=== PATIENT | female | born 1985 | race Caucasian/White ===

== ENCOUNTER 2016-05-21 12:31 | Emergency (ER) | payer BC, MEDICAID ==
[~2016-05-21] VITALS: Ht 160 cm; Wt 68.5 kg
[~2016-05-21 12:31] MED LIST: ACET1TAB40 PO; ACYC800T57 PO; CEPH-443 PO; DICL50TA11 PO; DOCO2CRE3 TP; FAMO40TA38 PO; HYDR-3498 PO; NAPR-260 PO; PNV1TABL43 PO; PREN1COM10 PO
[2016-05-21 13:15] VITALS: Ht 160 cm; Wt 68.5 kg
[2016-05-21] MEDS ORDERED: ONDANSETRON 4 MG INJ IV STA (15:05)
[2016-05-21] MEDS ORDERED: KETOROLAC 15 MG INJ IV STA (15:05)
[2016-05-21] MEDS ORDERED: SOD CHLORIDE 0.9% 1,000 ML IV STA (15:05)
[2016-05-21] MEDS ORDERED: morphine 4 MG/ML VIAL IV STA (15:05)
[2016-05-21 15:38] LABS: BASOPHIL # 0.1 10^3/ul (0.0-0.1); CONDITION 1; EOSINOPHILS # 0.1 10^3/ul (0.0-0.5); HEMATOCRIT 41.2 % (37.0-47.0); LYMPHOCYTES # 1.1 10^3/ul (0.8-2.9); LYMPHOCYTES % 21.5 % (15.0-51.0); MEAN CORPUSCULAR HEMOGLOBIN 30.8 pg (29.0-33.0); MEAN CORPUSCULAR VOLUME 90.4 fl (82.0-101.0); MEAN PLATELET VOLUME 8.1 fl (7.4-10.4); MONOCYTE # 0.4 10^3/ul (0.3-0.9); MONOCYTES % 8.1 % (0.0-11.0); NEUTROPHIL # 3.6 10^3/ul (1.6-7.5); NEUTROPHILS % 68.4 % (39.0-77.0); PLATELET COUNT 278 10^3/UL (140-440); RED BLOOD COUNT 4.56 10^6/ul (4.20-5.40); UNCORRECTED WBC 5.3 10^3/ul (4.8-10.8); WHITE BLOOD COUNT 5.3 10^3/ul (4.8-10.8)
--- NOTE | 2016-05-21 15:58 | RADRPT ---
PROCEDURE: US Abdomen (right lower quadrant). CLINICAL INDICATION: Right lower quadrant abdominal pain TECHNIQUE: Multiple real-time longitudinal and transverse images of the right lower quadrant of th e abdomen were acquired utilizing a curved array transducer. Images were reviewed on a high-resoluti on PACS workstation. COMPARISON: Previous CT done 07/28/2011 A normal vermiform appendix was demonstrated on the previous CT. FINDINGS: The appendix is not visualized. No free fluid or fluid collection is seen. Segments of peristaltic bowel are identified. IMPRESSION: 1. The appendix is not visualized and therefore, acute appendicitis cannot be excluded sonographica lly requiring clinical correlation. 2. No free fluid is seen in the right lower quadrant. Physician Jax Date Time Electronically viewed and signed by Physician Jax on 05/21/2016 15:57 RH/
[2016-05-21 16:02] LABS: ALBUMIN 5.1 g/dl (3.3-4.9)
[2016-05-21 16:03] LABS: POTASSIUM 3.6 mmol/L (3.5-5.1)
[2016-05-21 16:05] LABS: ALBUMIN/GLOBULIN RATIO 1.34; BILIRUBIN,INDIRECT 0.4 mg/dl (0-1.1); BILIRUBIN,TOTAL 0.4 mg/dl (0.2-1.3); CREATININE 0.52 mg/dl (0.44-1.00); TOTAL PROTEIN 8.9 g/dl (6.1-8.1)
[2016-05-21 16:06] LABS: CALCIUM 9.6 mg/dl (8.4-10.2)
[2016-05-21 16:09] LABS: ADD UMIC YES; URINE BILIRUBIN (Dip) NEGATIVE (NEGATIVE); URINE BLOOD (Dip) 1+ (NEGATIVE); URINE COLOR YELLOW (YELLOW); URINE GLUCOSE (Dip) NEGATIVE (NEGATIVE); URINE KETONES (Dip) TRACE (NEGATIVE); URINE LEUKOCYTE ESTERASE (Dip) NEGATIVE (NEGATIVE); URINE NITRITE (Dip) NEGATIVE (NEGATIVE); URINE TOTAL PROTEIN (Dip) NEGATIVE (NEGATIVE); URINE UROBILINOGEN (Dip) 1.0 E.U./dL (0.1-1.0)
[2016-05-21 16:28] LABS: SQUAMOUS EPITHELIAL CELL,UR FEW
[2016-05-21 16:29] LABS: URINE RBCS 0-2 /HPF (0)
--- NOTE | 2016-05-21 19:36 | RADRPT ---
PROCEDURE: CT Abdomen and Pelvis without contrast. CLINICAL INDICATION: Right lower quadrant pain, tender to palpation. TECHNIQUE: A CT scan of the abdomen and pelvis was performed without intravenous contrast. Soto l and sagittal reformatted images were generated. Images were reviewed on a high-resolution PACS wor kstation. CTDIvol: 8.16 mGy. DLP: 488.10 mGy-cm. COMPARISON: None. FINDINGS: The lung bases are clear. Evaluation of the abdominal and pelvic viscera is limited by the lack of oral and intravenous contra st. The liver is unremarkable. The gallbladder is normal in appearance. The common bile duct is not dila salima. The spleen is not enlarged. No pancreatic lesion is identified and there is no pancreatic ducta l dilatation. The adrenal glands are unremarkable. The kidneys are normal in size. There is no perinephric fat stranding. No hydronephrosis is seen. No urinary stone is identified. The small and large bowel are normal in caliber. There is no bowel wall thickening. The appendix is normal. The urinary bladder is unremarkable. There is an intrauterine device in place within the uterus. No adnexal mass is identified. No lymphadenopathy is identified. There is no ascites. No pneumoperitoneum is seen. There are no art erial calcifications. There is a small fat containing periumbilical hernia. No suspicious osseous lesion is idenitified. IMPRESSION: 1. No inflammation, mass, or lymphadenopathy. 2. Normal appendix. 3. No obstructive uropathy or urinary stone. 4. Intrauterine device in place. 5. Small fat containing periumbilical hernia. RPTAT: HTAR .Markel Jennings MD, Date Time Electronically viewed and signed by .Markel Jennings MD, MD on 05/21/2016 19:36 .R/
[2016-05-21] MEDS ORDERED: HYDR-906 PO (19:57)
[2016-05-21] MEDS ORDERED: IBUP-1542 PO (19:57)
[2016-05-21] MEDS ORDERED: ONDA4TAB14 PO (19:57)
--- NOTE | 2016-05-21 20:15 | ERD ---
ER Documentation Chief Complaint Date/Time DATE: 05/21/16 TIME: 20:11 Chief Complaint Pt with AP, vomiting, cold chills, and OLSEN HPI Patient complains that she vomited yesterday but today she feels better. Complains of headache right lower quadrant pain for 1 day. She does have some nausea. No cough no sore throat no diarrhea no UTI symptoms. No past medical history no medications no allergies. She has had 3. ROS All systems reviewed and are negative except as per history of present illness. Medications Home Meds Active Scripts Ondansetron (Ondansetron Odt) 4 Mg Tab.rapdis, 4 MG PO Q6H Y for NAUSEA AND/OR VOMITING, #6 TAB Prov:PAUL KLINE DO 05/21/16 Ibuprofen* (Motrin*) 600 Mg Tab, 600 MG PO Q8, #15 TAB Prov:PAUL KLINE DO 05/21/16 Hydrocodone/Acetaminophen (Emmett 5-325 Tablet) 1 Each Tablet, 1 TAB PO Q6H Y for PAIN, #7 TAB Prov:PAUL KLINE DO 05/21/16 Diclofenac Sodium* (Diclofenac Sodium*) 50 Mg Tablet.dr, 50 MG PO BID for 10 Days, #20 TAB Prov:BONITA ARGUELLO MD 12/19/15 Cephalexin* (Keflex*) 500 Mg Capsule, 500 MG PO QID for 5 Days, CAP Prov:DOMITILA BROWN MD 09/26/15 Famotidine* (Pepcid*) 40 Mg Tablet, 40 MG PO HS, #14 TAB Prov:DOMITILA BROWN MD 09/26/15 Acetaminophen-Codeine* (Acetaminophen-Cod #3*) 300-30 Mg Tab, 1 TAB PO Q4H Y for PAIN, #10 TAB Prov:DOMITILA BROWN MD 09/26/15 Cephalexin* (Keflex*) 500 Mg Capsule, 500 MG PO QID for 5 Days, CAP Prov:NILA SORTO 12/19/14 Docosanol (Abreva) 2 Gm Cream.gm., 2 GM TP BID for 7 Days Prov:NILA SORTO 12/04/14 Acyclovir* (Zovirax*) 800 Mg Tablet, 400 MG PO BID for 7 Days, TAB Prov:NILA SORTO 12/04/14 Hydrocodone Bit-Acetaminophen* (Emmett*) 5-325 Mg Tab, 1 TAB PO Q6 Y for PAIN, # 7 TAB Prov:PAUL KLINE DO 11/16/14 Naproxen* (Naprosyn*) 500 Mg Tablet, 500 MG PO BID Y for PAIN AND/OR INFLAMMATION, #20 TAB Prov:PAUL KLINE DO 11/16/14 Reported Medications Vit/Fe Fumarate/Fa* ( Vitamin Tablet*) 1 Tab Tablet, 1 TAB PO AM, TAB 05/02/14 Cmb#95/Iron/Fa/Dha ( + DHA COMBO PACK) 1 Each Combo..pkg, 1 EACH PO DAILY 10/17/12 Allergies Allergies: Coded Allergies: No Known Allergy (Unverified , 05/02/14) PMhx/Soc Medical and Surgical Hx: pt denies Medical Hx, pt denies Surgical Hx History of Surgery: No Anesthesia Reaction: No Hx Neurological Disorder: No Hx Respiratory Disorders: No Hx Cardiac Disorders: No Hx Psychiatric Problems: No Hx Miscellaneous Medical Probl: No Hx Alcohol Use: No Hx Substance Use: No Hx Tobacco Use: No Physical Exam Vitals Vital Signs Date Time Temp Pulse Resp B/P Pulse Ox O2 Delivery O2 Flow Rate FiO2 05/21/16 13:15 98.3 79 18 118/79 99 Physical Exam Const: [Alert oriented 4, well-nourished well-developed nontoxic- appearing no apparent distress, interacts appropriately] Head: [Normocephalic/atraumatic, no scalp lesions] Eyes: [Normal Conjunctiva, PERRLA, EOMI no conjunctival injection no conjunctival discharge] ENT: [Normal External Ears, Nose and Mouth, no tonsillar exudates no tonsillar erythema no tonsillar edema oropharynx no erythema. bilateral ear canals are patent, bilateral tympanic membranes nonerythematous.] Neck: [Full range of motion. No meningismus. No cervical lymphadenopathy] Resp: [Clear to auscultation bilaterally, no wheezes rhonchi or rales, breathing normally, no tachypnea no nasal flaring no grunting no accessory muscle use no retractions] Cardio: [Regular rate and rhythm, no murmurs] Abd: [Soft, positive right lower quadrant tenderness to palpation non distended. Normal bowel sounds, no rebound rigidity or guarding. Normoactive bowel sounds no flank tenderness, negative Rovsing sign negative obturator sign negative psoas sign negative [place] sign.] Skin: [No petechiae or rashes, no hives no urticaria no abscess no laceration no new warmth] Back: [No midline or flank tenderness, full range of motion without pain ] Ext: [No cyanosis, clubbing or edema] Neuro: M/S: Alert and oriented 4. Face: EOMI, face and pharynx with normal sensation and function Motor: Normal strength throughout, muscle strength is 5 out of 5 bilateral upper extremity and bilateral lower extremity Sensation: Normal sensation throughout Speech: Normal Cerebel: Normal coordination Normal gait DTR: 2+ and symmetric upper/lower extremities Psych: [Normal Mood and Affect, no suicidal ideation or homicide ideation] Result Diagram: 05/21/16 1520 05/21/16 1520 Results 24 hrs Laboratory Tests Test 05/21/16 15:20 Alanine Aminotransferase (ALT/SGPT) 92IU/L Albumin 5.1g/dl Albumin/Globulin Ratio 1.34 Alkaline Phosphatase 102IU/L Anion Gap 19 Aspartate Amino Transf (AST/SGOT) 55IU/L Basophils # 0.110^3/ul Basophils % 1.0% Blood Urea Nitrogen 11mg/dl Calcium Level 9.6mg/dl Carbon Dioxide Level 26mmol/L Chloride Level 101mmol/L Creatinine 0.52mg/dl Direct Bilirubin 0.00mg/dl Eosinophils # 0.110^3/ul Eosinophils % 1.0% Globulin 3.80g/dl Glucose Level 93mg/dl Hematocrit 41.2% Hemoglobin 14.0g/dl Indirect Bilirubin 0.4mg/dl Lipase 68U/L Lymphocytes # 1.110^3/ul Lymphocytes % 21.5% Mean Corpuscular Hemoglobin 30.8pg Mean Corpuscular Hemoglobin Concent 34.0g/dl Mean Corpuscular Volume 90.4fl Mean Platelet Volume 8.1fl Monocytes # 0.410^3/ul Monocytes % 8.1% Neutrophils # 3.610^3/ul Neutrophils % 68.4% Nucleated Red Blood Cells # 0.010^3/ul Nucleated Red Blood Cells % 0.0/100WBC Platelet Count 31330^3/UL Potassium Level 3.6mmol/L Red Blood Count 4.5610^6/ul Red Cell Distribution Width 13.0% Sodium Level 142mmol/L Total Bilirubin 0.4mg/dl Total Protein 8.9g/dl Urine Bilirubin NEGATIVE Urine Calcium Oxalate Crystals FEW Urine Clarity CLEAR Urine Color YELLOW Urine Glucose NEGATIVE% Urine Hemoglobin 1+ Urine Ketones TRACE Urine Leukocyte Esterase NEGATIVE Urine Microscopic RBC 0-2/HPF Urine Microscopic WBC NONE SEEN/HPF Urine Nitrite NEGATIVE Urine Specific [place] >=1.030 Urine Squamous Epithelial Cells FEW Urine Total Protein NEGATIVE Urine Urobilinogen 1.0 E.U./dL Urine pH 5.5 White Blood Count 5.310^3/ul Current Medications Medications (Trade) Dose Ordered Sig/[place] Route PRN Reason Start Time Stop Time Status Last Admin Dose Admin Sodium Chloride (NS) 1,000 ml @ 1,000 mls/hr Q1H STAT IV 05/21/16 15:05 05/21/16 16:04 DC 05/21/16 15:30 Morphine Sulfate (morphine) 4 mg ONCE STAT IV 05/21/16 15:05 05/21/16 15:07 DC 05/21/16 15:33 Ondansetron HCl (Zofran Inj) 4 mg ONCE STAT IV 05/21/16 15:05 05/21/16 15:07 DC 05/21/16 15:33 Ketorolac Tromethamine (Toradol) 15 mg ONCE STAT IV 05/21/16 15:05 05/21/16 15:07 DC 05/21/16 15:33 [place] [address] Radiology Main Line: [phone] DIAGNOSTIC IMAGING REPORT Patient: SUHAIL NEVAREZ : 1985 Age: 31 Sex: F MR #: [id number] DOS: 05/21/16 0000 Ordering MD: PAUL KLINE DO Location: E Room/Bed: PROCEDURE: US Abdomen (right lower quadrant). CLINICAL INDICATION: Right lower quadrant abdominal pain TECHNIQUE: Multiple real-time longitudinal and transverse images of the right lower quadrant of the abdomen were acquired utilizing a curved array transducer. Images were reviewed on a high-resolution PACS workstation. COMPARISON: Previous CT done 07/28/2011 A normal vermiform appendix was demonstrated on the previous CT. FINDINGS: The appendix is not visualized. No free fluid or fluid collection is seen. Segments of peristaltic bowel are identified. IMPRESSION: 1. The appendix is not visualized and therefore, acute appendicitis cannot be excluded sonographically requiring clinical correlation. 2. No free fluid is seen in the right lower quadrant. Physician Jax Date Time Electronically viewed and signed by Physician Jax on 05/21/2016 15:57 RH/ CC: PAUL KLINE DO [place] [id number] Radiology Main Line: [phone] DIAGNOSTIC IMAGING REPORT Patient: SUHAIL NEVAREZ : 1985 Age: 31 Sex: F [id number] DOS: 05/21/16 0000 Ordering MD: PAUL KLINE DO Location: FTE Room/Bed: PROCEDURE: CT Abdomen and Pelvis without contrast. CLINICAL INDICATION: Right lower quadrant pain, tender to palpation. TECHNIQUE: A CT scan of the abdomen and pelvis was performed without intravenous contrast. Coronal and sagittal reformatted images were generated. Images were reviewed on a high-resolution PACS workstation. CTDIvol: 8.16 mGy. DLP: 488.10 mGy-cm. COMPARISON: None. FINDINGS: The lung bases are clear. Evaluation of the abdominal and pelvic viscera is limited by the lack of oral and intravenous contrast. The liver is unremarkable. The gallbladder is normal in appearance. The common bile duct is not dilated. The spleen is not enlarged. No pancreatic lesion is identified and there is no pancreatic ductal dilatation. The adrenal glands are unremarkable. The kidneys are normal in size. There is no perinephric fat stranding. No hydronephrosis is seen. No urinary stone is identified. The small and large bowel are normal in caliber. There is no bowel wall thickening. The appendix is normal. The urinary bladder is unremarkable. There is an intrauterine device in place within the uterus. No adnexal mass is identified. No lymphadenopathy is identified. There is no ascites. No pneumoperitoneum is seen. There are no arterial calcifications. There is a small fat containing periumbilical hernia. No suspicious osseous lesion is idenitified. IMPRESSION: 1. No inflammation, mass, or lymphadenopathy. 2. Normal appendix. 3. No obstructive uropathy or urinary stone. 4. Intrauterine device in place. 5. Small fat containing periumbilical hernia. RPTAT: HTAR .Markel Jennings MD, MD Date Time Electronically viewed and signed by .Markel Jennings MD, MD on 05/21/2016 19:36 .R/ CC: PAUL KLINE DO Procedures/MDM Her ultrasound was negative. On serial abdominal exam she did have mild right lower quadrant tenderness to palpation. We gave her IV fluids pain medication and nausea medication and she did feel somewhat better. I subsequently ordered a CAT scan of the abdomen which was negative for appendicitis and otherwise not significant. She has a small umbilical hernia which I do not think is causing her right lower quadrant pain. She has no leukocytosis no fever so I doubt tubo -ovarian abscess or acute infectious inflammatory process such as cholangitis cholecystitis choledocholithiasis pancreatitis. If she continues to have the pain she should return back here in 8 hours however at this point the workup for appendicitis was normal there is no leukocytosis ultrasound and CAT scan are normal as well. This may be a abdominal wall strain as well. Urine did not show nitrates or leukocytes I doubt UTI or pyelonephritis. In her urine she had trace ketones and high specific gravity consistent with mild dehydration so we did give her IV fluids. CAT scan was negative for hydronephrosis or renal stones. Vital signs are stable she appears well she stable for discharge and outpatient follow-up. Departure Diagnosis: Primary Impression: RLQ abdominal pain Additional Impressions: Nausea and vomiting in adult patient Ketonuria Dehydration Condition: Stable Patient Instructions: Nausea and Vomiting-Adult, Abdominal Pain, Unknown Cause , (Female) PAUL KLINE DO May 21, 2016 20:15
== END 2016-05-21 20:21 | disposition home or self-care (01) ==
LOC: FTE 12:31
DX: R10.31 Right lower quadrant pain (principal); R11.2 Nausea with vomiting, unspecified; E86.0 Dehydration; R82.4 Acetonuria
CPT/HCPCS: 36415; 74176; 76705; 80053; 81001; 83690; 85025; 96374; 96375; J1885; J2270; J2405; J7030; Z7502; 81003

== ENCOUNTER 2016-10-15 06:08 | Emergency (ER) | payer MEDICAID ==
[~2016-10-15] VITALS: Ht 160 cm; Wt 68.0 kg
[~2016-10-15 06:08] MED LIST changes: +HYDR-906 PO; +IBUP-1542 PO; +ONDA4TAB14 PO
[2016-10-15 06:23] VITALS: Ht 160 cm; Wt 68.0 kg
[2016-10-15] MEDS ORDERED: KETOROLAC 30 MG INJ IM STA (06:44)
--- NOTE | 2016-10-15 06:47 | ERD ---
ER Documentation Chief Complaint Date/Time DATE: 10/15/16 TIME: 06:45 Chief Complaint headcahe with nausea since yesterday HPI 31-year-old female otherwise healthy comes emergency department with 1 day history of headache with nausea. Patient describes as throbbing pain behind her right eye and around her left cheek, worse with leaning forward, throbbing, moderate pain. She states that the pain was gradual in onset. She has tried taking Tylenol however did not relieve the pain. She also has right-sided jaw pain with this. She has not had any fevers or chills. No vomiting. Denies head injuries. No paresthesias or weakness. ROS All systems reviewed and are negative except as per history of present illness. Medications Home Meds Active Scripts Ibuprofen* (Motrin*) 600 Mg Tab, 600 MG PO Q6, #30 TAB Prov:ORA MCBRIDE PA-C 10/15/16 Ondansetron (Ondansetron Odt) 4 Mg Tab.rapdis, 4 MG PO Q6H Y for NAUSEA AND/OR VOMITING, #6 TAB Prov:PAUL KLINE DO 05/21/16 Ibuprofen* (Motrin*) 600 Mg Tab, 600 MG PO Q8, #15 TAB Prov:ELIUDPAUL DO 05/21/16 Hydrocodone/Acetaminophen (Carriere 5-325 Tablet) 1 Each Tablet, 1 TAB PO Q6H Y for PAIN, #7 TAB Prov:ELIUDPAUL DO 05/21/16 Diclofenac Sodium* (Diclofenac Sodium*) 50 Mg Tablet.dr, 50 MG PO BID for 10 Days, #20 TAB Prov:BONITA ARGUELLO MD 12/19/15 Cephalexin* (Keflex*) 500 Mg Capsule, 500 MG PO QID for 5 Days, CAP Prov:DOMITILA BROWN MD 09/26/15 Famotidine* (Pepcid*) 40 Mg Tablet, 40 MG PO HS, #14 TAB Prov:DOMITILA BROWN MD 09/26/15 Acetaminophen-Codeine* (Acetaminophen-Cod #3*) 300-30 Mg Tab, 1 TAB PO Q4H Y for PAIN, #10 TAB Prov:DOMITILA BROWN MD 09/26/15 Cephalexin* (Keflex*) 500 Mg Capsule, 500 MG PO QID for 5 Days, CAP Prov:NILA SORTO 12/19/14 Docosanol (Abreva) 2 Gm Cream.gm., 2 GM TP BID for 7 Days Prov:NILA SORTO 12/04/14 Acyclovir* (Zovirax*) 800 Mg Tablet, 400 MG PO BID for 7 Days, TAB Prov:NILA SORTO 12/04/14 Hydrocodone Bit-Acetaminophen* (Carriere*) 5-325 Mg Tab, 1 TAB PO Q6 Y for PAIN, # 7 TAB Prov:PAUL KLINE DO 11/16/14 Naproxen* (Naprosyn*) 500 Mg Tablet, 500 MG PO BID Y for PAIN AND/OR INFLAMMATION, #20 TAB Prov:PAUL KLINE DO 11/16/14 Reported Medications Vit/Fe Fumarate/Fa* ( Vitamin Tablet*) 1 Tab Tablet, 1 TAB PO AM, TAB 05/02/14 Cmb#95/Iron/Fa/Dha ( + DHA COMBO PACK) 1 Each Combo..pkg, 1 EACH PO DAILY 10/17/12 Allergies Allergies: Coded Allergies: No Known Allergy (Unverified , 05/02/14) PMhx/Soc Medical and Surgical Hx: pt denies Medical Hx History of Surgery: Yes (c/s x 3) Anesthesia Reaction: No Hx Neurological Disorder: No Hx Respiratory Disorders: No Hx Cardiac Disorders: No Hx Psychiatric Problems: No Hx Miscellaneous Medical Probl: No Hx Alcohol Use: No Hx Substance Use: No Hx Tobacco Use: No Smoking Status: Never smoker Physical Exam Vitals Vital Signs Date Time Temp Pulse Resp B/P Pulse Ox O2 Delivery O2 Flow Rate FiO2 10/15/16 06:23 97.9 78 16 121/84 99 Physical Exam General: Well-developed, well-nourished. The patient appears in no acute distress. HEENT: Head is normocephalic, atraumatic. No scleral icterus. Extraocular movements intact, eyes are Romulo. There is no injection, no periorbital swelling. Neck: Supple. Nontender. Lungs: Clear to auscultation. Normal air movement. Heart: Regular rate and rhythm. S1 and S2 are normal. No murmurs, gallops, or rubs. Abdomen: Soft, nontender, nondistended. Bowel sounds are normoactive. Extremities: No clubbing or cyanosis. Normal pulses. Moving extremities x 4. No weakness. Neuro: M/S: Alert and oriented Face: EOMI, CN II-XII grossly intact Motor: Normal strength throughout Sensation: Normal sensation throughout Speech: Normal Cerebel: Normal coordination Normal gait Normal finger to nose DTR: 2+ and symmetric upper/lower extremities. Skin: Normal turgor. No rash or lesions. Results 24 hrs Laboratory Tests Test 10/15/16 07:06 Bedside Urine pH (LAB) 6.0 Bedside Urine Protein (LAB) Negative Bedside Urine Glucose (UA) Negative Bedside Urine Ketones (LAB) 1+ Bedside Urine Blood 2+ Bedside Urine Nitrite (LAB) Negative Bedside Urine Leukocyte Esterase (L Trace Current Medications Medications (Trade) Dose Ordered Sig/[place] Route PRN Reason Start Time Stop Time Status Last Admin Dose Admin Ketorolac Tromethamine (Toradol) 30 mg ONCE STAT IM 10/15/16 06:44 10/15/16 06:45 DC 10/15/16 06:51 Procedures/MDM ED course: Patient was given Toradol 30 mg IM. MDM: 31-year-old female comes emergency room with 1 day history of headache, with nausea. Patient's headache is described as throbbing, worse with leaning forward, and throbbing, it is likely a tension versus migraine headache. Patient was given Toradol in the emergency department and had improvement of her pain. I doubt subarachnoid hemorrhage, meningitis, encephalitis, other intracranial hemorrhage, mass-effect. Patient's neurologic examination is intact, headache appears to be more of a tension headache and is around the right eye. History does not sound concerning for intracranial hemorrhage. She is nontoxic and will be discharged home. Departure Diagnosis: Primary Impression: Headache Condition: ORA Meyers PA-C October 15, 2016 06:47
[2016-10-15 07:03] LABS: URINE BLOOD (Dip) POC 2+ (NEGATIVE)
[2016-10-15] MEDS ORDERED: IBUP-1542 PO (08:08)
[2016-10-15 08:19] VITALS: BP 131/84; PULSE 74; RESP 18
== END 2016-10-15 08:36 | disposition home or self-care (01) ==
LOC: FTE 06:08
DX: R51 Headache (principal)
CPT/HCPCS: 81003; 96372; J1885; Z7502

== ENCOUNTER 2016-10-23 05:11 | Emergency (ER) | payer MEDICAID ==
[~2016-10-23] VITALS: Ht 162.6 cm; Wt 69.0 kg
[2016-10-23 05:14] VITALS: Ht 162.6 cm; Wt 69.0 kg
[2016-10-23] MEDS ORDERED: morphine 4 MG/ML VIAL IV STA (06:00)
[2016-10-23] MEDS ORDERED: SOD CHLORIDE 0.9% 1,000 ML IV ONE (06:00)
[2016-10-23] MEDS ORDERED: ONDANSETRON 4 MG INJ IV STA (06:00)
[2016-10-23 06:05] LABS: ADD SCAN DIFF NO
[2016-10-23] MEDS ORDERED: GARL100T PO (06:08)
[2016-10-23] MEDS ORDERED: TYL500 PO (06:08)
[2016-10-23] MEDS ORDERED: OMEG1CAP2 PO (06:08)
[2016-10-23] MEDS ORDERED: MULT1TAB6 PO (06:08)
[2016-10-23 06:12] LABS: BASOPHILS % 0.1 % (0.0-2.0); EOSINOPHILS % 0.2 % (0.0-7.0); HEMATOCRIT 38.6 % (37.0-47.0); HEMOGLOBIN 13.2 g/dl (12.0-16.0); LYMPHOCYTES # 0.9 10^3/ul (0.8-2.9); LYMPHOCYTES % 6.5 % (15.0-51.0); MEAN CORPUSCULAR HEMOGLOBIN 31.3 pg (29.0-33.0); MEAN CORPUSCULAR HGB CONC 34.2 g/dl (32.0-37.0); MEAN CORPUSCULAR VOLUME 91.5 fl (82.0-101.0); MEAN PLATELET VOLUME 9.9 fl (7.4-10.4); MONOCYTE # 0.8 10^3/ul (0.3-0.9); MONOCYTES % 5.8 % (0.0-11.0); NEUTROPHIL # 12.4 10^3/ul (1.6-7.5); PLATELET COUNT 261 10^3/UL (140-415); RED BLOOD COUNT 4.22 10^6/ul (4.20-5.40); RED CELL DISTRIBUTION WIDTH 11.9 % (11.5-14.5); WHITE BLOOD COUNT 14.2 10^3/ul (4.8-10.8)
[2016-10-23 06:36] LABS: ALBUMIN 5.1 g/dl (3.3-4.9); ALBUMIN/GLOBULIN RATIO 2.04; BILIRUBIN,INDIRECT 0.2 mg/dl (0-1.1); BILIRUBIN,TOTAL 0.2 mg/dl (0.2-1.3); CALCIUM 9.6 mg/dl (8.4-10.2); CREATININE 0.5 mg/dl (0.44-1.00); POTASSIUM 3.6 mmol/L (3.5-5.1); TOTAL PROTEIN 7.6 g/dl (6.1-8.1)
[2016-10-23 07:26] LABS: ADD UMIC YES; URINE BILIRUBIN (Dip) NEGATIVE (NEGATIVE); URINE BLOOD (Dip) 2+ (NEGATIVE); URINE COLOR LT. YELLOW (YELLOW); URINE GLUCOSE (Dip) NEGATIVE (NEGATIVE); URINE KETONES (Dip) NEGATIVE (NEGATIVE); URINE LEUKOCYTE ESTERASE (Dip) NEGATIVE (NEGATIVE); URINE NITRITE (Dip) NEGATIVE (NEGATIVE); URINE TOTAL PROTEIN (Dip) NEGATIVE (NEGATIVE); URINE UROBILINOGEN (Dip) 0.2 E.U./dL (0.1-1.0)
--- NOTE | 2016-10-23 07:36 | RADRPT ---
PROCEDURE: CT Abdomen and pelvis without contrast. CLINICAL INDICATION: Right lower quadrant pain. Rule out appendicitis TECHNIQUE: CT scan of the abdomen and pelvis with contrast was performed on a multidetector high-r esolution CT scan. . Coronal and sagittal reformatted images were obtained from the axial source i mages. Standard CT scan of the abdomen pelvis without contrast protocols were performed. The total exam CTDI equals 9.92 mGy and the total exam DLP equals 560.06 mGy-cm. One or more of the following dose reduction techniques were used: - Automated exposure control. - Adjustment of the mA and/or kV according to patient size. Use of iterative reconstruction technique. COMPARISON: CT abdomen pelvis without contrast 05/21/2016 FINDINGS: The appendix is unremarkable. The stomach, small bowel and large bowel are unremarkable. There is trace free fluid in the right cul-de-sac. No other abdominal free fluid. Negative for int ra-abdominal abscess, free air or lymphadenopathy. The kidneys are normal in size without evidence of calcified renal calculi, hydronephrosis or ventra l masses bilaterally. The ureters and urinary bladder are unremarkable. The uterus is anteverted anteflexed with an intrauterine device. Otherwise the uterus is unremarkab le. No adnexal masses. The liver spleen pancreas adrenal glands and gallbladder are unremarkable. No evidence of biliary d uctal dilation. Again noted is a small fat containing umbilical hernia without herniated bowel or strangulation. Th e aorta is unremarkable. IMPRESSION: 1. Unremarkable appendix. 2. Trace free fluid in the right cul-de-sac. Negative for abdominal free air, abscess or lymphaden opathy. 3. No evidence of calcified urinary calculi or obstructive uropathy. 4. Small fat containing umbilical hernia without herniated hour strangulation. RPTAT:AAJJ Physician Feliz Date Time Electronically viewed and signed by Physician Feliz on 10/23/2016 07:36 BM/
[2016-10-23] MEDS ORDERED: HYDROmorphONE 1 MG/ML SYG IV STA (07:40)
[2016-10-23] MEDS ORDERED: HYDR-902 PO (07:43)
[2016-10-23] MEDS ORDERED: ONDA4TAB14 PO (07:43)
[2016-10-23 08:07] LABS: BACTERIA,URINE FEW; MUCUS,URINE FEW
[2016-10-23 08:13] VITALS: BP 108/66; PULSE 77; RESP 18; TEMP 98
--- NOTE | 2016-10-23 08:42 | ERD ---
ER Documentation Chief Complaint Date/Time DATE: 10/23/16 TIME: 08:40 Chief Complaint mid abd pain x 2 days w/iarrhea and vomiting HPI Patient is a 31-year-old female with no medical problems who presents with abdominal pain. She said the abdominal pain started last night and was worse today. The pain has been constant. She has no fevers. She has vomiting and diarrhea. Upon review of old medical records the patient has multiple visits to the ER for various complaints including abdominal pain. Her primary doctor is Dr. Cortes. ROS All systems reviewed and are negative except as per history of present illness. Medications Home Meds Active Scripts Ondansetron (Ondansetron Odt) 4 Mg Tab.rapdis, 4 MG PO Q6H Y for NAUSEA AND/OR VOMITING, #10 TAB Prov:BREE CEDILLO MD 10/23/16 Hydrocodone/Acetaminophen ([place] 10-325 Tablet) 1 Each Tablet, 1 TAB PO Q6H Y for PAIN, #7 TAB Prov:BREE CEDILLO MD 10/23/16 Reported Medications Garlic* (Garlic*) 100 Mg Tablet, 100 MG PO DAILY, TAB 10/23/16 [place]-3 Acid Ethyl Esters (Lovaza) 1 Gm Capsule, 2 GM PO BID, CAP 10/23/16 Folic Acid/Mv,Fe,Other Min (Centrum Complete Multivit Tab) 1 Each Tablet, 1 EACH PO, TAB 10/23/16 Acetaminophen* (Tylenol*) 500 Mg Tab, 500 MG PO Q4H Y for MILD PAIN LEVEL 1-3, TAB 10/23/16 Discontinued Reported Medications Vit/Fe Fumarate/Fa* ( Vitamin Tablet*) 1 Tab Tablet, 1 TAB PO AM, TAB 05/02/14 Cmb#95/Iron/Fa/Dha ( + DHA COMBO PACK) 1 Each Combo..pkg, 1 EACH PO DAILY 10/17/12 Discontinued Scripts Ibuprofen* (Motrin*) 600 Mg Tab, 600 MG PO Q6, #30 TAB Prov:ORA MCBRIDE PA-C 10/15/16 Ondansetron (Ondansetron Odt) 4 Mg Tab.rapdis, 4 MG PO Q6H Y for NAUSEA AND/OR VOMITING, #6 TAB Prov:PAUL KLINE DO 05/21/16 Ibuprofen* (Motrin*) 600 Mg Tab, 600 MG PO Q8, #15 TAB Prov:PAUL KLINE DO 05/21/16 Hydrocodone/Acetaminophen ([place] 5-325 Tablet) 1 Each Tablet, 1 TAB PO Q6H Y for PAIN, #7 TAB Prov:PAUL KLINE DO 05/21/16 Diclofenac Sodium* (Diclofenac Sodium*) 50 Mg Tablet.dr, 50 MG PO BID for 10 Days, #20 TAB Prov:BONITA ARGUELLO MD 12/19/15 Cephalexin* (Keflex*) 500 Mg Capsule, 500 MG PO QID for 5 Days, CAP Prov:DOMITILA BROWN MD 09/26/15 Famotidine* (Pepcid*) 40 Mg Tablet, 40 MG PO HS, #14 TAB Prov:DOMITILA BROWN MD 09/26/15 Acetaminophen-Codeine* (Acetaminophen-Cod #3*) 300-30 Mg Tab, 1 TAB PO Q4H Y for PAIN, #10 TAB Prov:DOMITILA BROWN MD 09/26/15 Cephalexin* (Keflex*) 500 Mg Capsule, 500 MG PO QID for 5 Days, CAP Prov:NILA SORTO 12/19/14 Docosanol (Abreva) 2 Gm Cream.gm., 2 GM TP BID for 7 Days Prov:NILA SORTO 12/04/14 Acyclovir* (Zovirax*) 800 Mg Tablet, 400 MG PO BID for 7 Days, TAB Prov:NILA SORTO 12/04/14 Hydrocodone Bit-Acetaminophen* ([place]*) 5-325 Mg Tab, 1 TAB PO Q6 Y for PAIN, # 7 TAB Prov:PAUL KLINE 11/16/14 Naproxen* (Naprosyn*) 500 Mg Tablet, 500 MG PO BID Y for PAIN AND/OR INFLAMMATION, #20 TAB Prov:ELIUDPAUL 11/16/14 Allergies Allergies: Coded Allergies: No Known Allergy (Unverified , 05/02/14) PMhx/Soc Medical and Surgical Hx: pt denies Medical Hx History of Surgery: Yes (c/s x 3) Anesthesia Reaction: No Hx Neurological Disorder: No Hx Respiratory Disorders: No Hx Cardiac Disorders: No Hx Psychiatric Problems: No Hx Miscellaneous Medical Probl: No Hx Alcohol Use: No Hx Substance Use: No Hx Tobacco Use: No Smoking Status: Never smoker FmHx Family History: No diabetes Physical Exam Vitals Vital Signs Date Time Temp Pulse Resp B/P Pulse Ox O2 Delivery O2 Flow Rate FiO2 10/23/16 08:13 98.0 77 18 108/66 99 Room Air 10/23/16 05:14 98.2 104 20 120/72 100 Physical Exam Const: Moderate distress secondary to pain Head: Atraumatic Eyes: Normal Conjunctiva ENT: Normal External Ears, Nose and Mouth. Neck: Full range of motion..~ No meningismus. Resp: Clear to auscultation bilaterally Cardio: Regular rate and rhythm, no murmurs Abd: Right lower quadrant pain without rebound or guarding Skin: No petechiae or rashes Back: No midline or flank tenderness Ext: No cyanosis, or edema Neur: Awake and alert Psych: Normal Mood and Affect Result Diagram: 10/23/16 0537 10/23/16 0537 Results 24 hrs Laboratory Tests Test 10/23/16 05:37 10/23/16 06:30 White Blood Count 14.210^3/ul Red Blood Count 4.2210^6/ul Hemoglobin 13.2g/dl Hematocrit 38.6% Mean Corpuscular Volume 91.5fl Mean Corpuscular Hemoglobin 31.3pg Mean Corpuscular Hemoglobin Concent 34.2g/dl Red Cell Distribution Width 11.9% Platelet Count 01354^3/UL Mean Platelet Volume 9.9fl Neutrophils % 87.0% Lymphocytes % 6.5% Monocytes % 5.8% Eosinophils % 0.2% Basophils % 0.1% Nucleated Red Blood Cells % 0.0/100WBC Neutrophils # 12.410^3/ul Lymphocytes # 0.910^3/ul Monocytes # 0.810^3/ul Eosinophils # 0.010^3/ul Basophils # 0.010^3/ul Nucleated Red Blood Cells # 0.010^3/ul Sodium Level 141mmol/L Potassium Level 3.6mmol/L Chloride Level 106mmol/L Carbon Dioxide Level 25mmol/L Anion Gap 14 Blood Urea Nitrogen 16mg/dl Creatinine 0.50mg/dl Glucose Level 139mg/dl Calcium Level 9.6mg/dl Total Bilirubin 0.2mg/dl Direct Bilirubin 0.00mg/dl Indirect Bilirubin 0.2mg/dl Aspartate Amino Transf (AST/SGOT) 37IU/L Alanine Aminotransferase (ALT/SGPT) 62IU/L Alkaline Phosphatase 72IU/L Total Protein 7.6g/dl Albumin 5.1g/dl Globulin 2.50g/dl Albumin/Globulin Ratio 2.04 Lipase 63U/L Urine Color LT. YELLOW Urine Clarity CLEAR Urine pH 5.5 Urine Specific Norris 1.025 Urine Ketones NEGATIVE Urine Nitrite NEGATIVE Urine Bilirubin NEGATIVE Urine Urobilinogen 0.2 E.U./dL Urine Leukocyte Esterase NEGATIVE Urine Microscopic RBC 10-25/HPF Urine Microscopic WBC 0-2/HPF Urine Epithelial Cells FEW Urine Bacteria FEW Urine Mucus FEW Urine Hemoglobin 2+ Urine Glucose NEGATIVE% Urine Total Protein NEGATIVE Current Medications Medications (Trade) Dose Ordered Sig/[place] Route PRN Reason Start Time Stop Time Status Last Admin Dose Admin Sodium Chloride (NS) 1,000 ml @ 1,000 mls/hr Q1H ONCE IV 10/23/16 06:00 10/23/16 06:59 DC 10/23/16 06:13 Morphine Sulfate (morphine) 4 mg ONCE STAT IV 10/23/16 06:00 10/23/16 06:02 DC 10/23/16 06:13 Ondansetron HCl (Zofran Inj) 4 mg ONCE STAT IV 10/23/16 06:00 10/23/16 06:02 DC 10/23/16 06:13 Hydromorphone HCl (Dilaudid) 1 mg ONCE STAT IV 10/23/16 07:40 10/23/16 07:41 DC 10/23/16 07:51 Procedures/MDM CT scan shows no appendicitis per radiology. Patient is a 31-year-old female with no medical problems who presents with abdominal pain. Her laboratory studies show mild elevation of the white blood cell count but are otherwise normal. CT scan shows no appendicitis or bowel obstruction or other surgical process per radiology. test is negative and I doubt or ectopic . I doubt cholecystitis, pancreatitis, appendicitis, or bowel obstruction. The patient will need to follow-up closely with a primary doctor within 24 hours for reevaluation. The patient will be given a short course of [place] and Zofran for symptomatic relief. Departure Diagnosis: Primary Impression: Abdominal pain Abdominal location: right lower quadrant Qualified Code: R10.31 - Right lower quadrant abdominal pain Condition: Fair Patient Instructions: Abdominal Pain Additional Instructions: Visite a kinney wendy villatoro para un EXAMEN.Regrese a estas instalaciones si no se mejora brock esperbamos o brock le dimelodies. BREE CEDILLO MD Oct 23, 2016 08:42
== END 2016-10-23 08:15 | disposition home or self-care (01) ==
LOC: E/R 05:11
DX: R10.31 Right lower quadrant pain (principal); R11.10 Vomiting, unspecified; R40.2142 Coma scale, eyes open, spontaneous, at arrival to emergency department; R40.2252 Coma scale, best verbal response, oriented, at arrival to emergency department; R40.2362 Coma scale, best motor response, obeys commands, at arrival to emergency department
CPT/HCPCS: 36415; 74176; 80053; 81001; 83690; 85025; 96374; 96375; J1170; J2270; J2405; J7030; Z7502

== ENCOUNTER 2017-03-06 08:01 | Emergency (ER) | payer MEDICAID ==
[~2017-03-06] VITALS: Ht 157.5 cm; Wt 71.0 kg
[~2017-03-06 08:01] MED LIST changes: -ACET1TAB40 PO; -ACYC800T57 PO; -CEPH-443 PO; -DICL50TA11 PO; -DOCO2CRE3 TP; -FAMO40TA38 PO; +GARL100T PO; -HYDR-3498 PO; +HYDR-902 PO; -HYDR-906 PO; -IBUP-1542 PO; +MULT1TAB6 PO; -NAPR-260 PO; +OMEG1CAP2 PO; -PNV1TABL43 PO; -PREN1COM10 PO; +TYL500 PO
[2017-03-06 08:04] VITALS: Ht 157.5 cm; Wt 71.0 kg
--- NOTE | 2017-03-06 09:10 | ERD ---
ER Documentation Chief Complaint Chief Complaint Complains of chest wall pain and pressure HPI 32 y/o female, previously healthy, presents to the emergency department c/o 1 month with intermittent episodes of chest pain, located on the left side. Pain is sharp, 5/10, radiating to left arm. Pain gets worse by movement of the left arm and palpation of the chest. Denies palpitations, SOB, dizziness. No treatment attempted. ROS SYSTEMIC symptoms: fever, but chills, no night sweats EYE symptoms: No eyesight problems. OTOLARYNGEAL symptoms: No hearing loss. CARDIOVASCULAR symptoms: (+) chest wall pain, no palpitations. PULMONARY symptoms: No dyspnea, no cough, no wheezing. GASTROINTESTINAL symptoms: No abdominal pain, no nausea, no vomiting SKIN no rashes MUSCULOSKELETAL symptoms: No arthralgias, no muscle aches. NEUROLOGY symptoms: No confusion, no syncope, no numbness or tingling. Medications Home Meds Active Scripts Baclofen* (Baclofen*) 10 Mg Tablet, 10 MG PO QHS for MUSCLE SPASMS for 7 Days, TAB Prov:PAMELA LEMONS MD 03/06/17 Ibuprofen* (Motrin*) 400 Mg Tab, 400 MG PO Q8 for 7 Days, #30 TAB Prov:PAMELA LEMONS MD 03/06/17 Ondansetron (Ondansetron Odt) 4 Mg Tab.rapdis, 4 MG PO Q6H Y for NAUSEA AND/OR VOMITING, #10 TAB Prov:BREE CEDILLO MD 10/23/16 Hydrocodone/Acetaminophen ([place] 10-325 Tablet) 1 Each Tablet, 1 TAB PO Q6H Y for PAIN, #7 TAB Prov:BREE CEDILLO MD 10/23/16 Reported Medications Garlic* (Garlic*) 100 Mg Tablet, 100 MG PO DAILY, TAB 10/23/16 [place]-3 Acid Ethyl Esters (Lovaza) 1 Gm Capsule, 2 GM PO BID, CAP 10/23/16 Folic Acid/Mv,Fe,Other Min (Centrum Complete Multivit Tab) 1 Each Tablet, 1 EACH PO, TAB 10/23/16 Acetaminophen* (Tylenol*) 500 Mg Tab, 500 MG PO Q4H Y for MILD PAIN LEVEL 1-3, TAB 10/23/16 Allergies Allergies: Coded Allergies: No Known Allergy (Unverified , 03/06/17) PMhx/Soc Denies personal or family history of DM, CAD, cancer. Non smoker Denies the use of recreational drugs History of Surgery: Yes (c/s x 3) Anesthesia Reaction: No Hx Neurological Disorder: No Hx Respiratory Disorders: No Hx Cardiac Disorders: No Hx Psychiatric Problems: No Hx Miscellaneous Medical Probl: No Hx Alcohol Use: No Hx Substance Use: No Hx Tobacco Use: No Physical Exam Vitals Vital Signs Date Time Temp Pulse Resp B/P Pulse Ox O2 Delivery O2 Flow Rate FiO2 03/06/17 09:17 66 18 112/79 100 Room Air 03/06/17 08:04 97.8 82 18 129/79 100 Physical Exam Head: Atraumatic Eyes: Normal Conjunctiva ENT: Normal External Ears, Nose and Mouth. Neck: Full range of motion..~ No meningismus. Resp: Clear to auscultation bilaterally Cardio: Regular rate and rhythm, no murmurs. Chest wall tenderness anterior left side Abd: Soft, non tender, non distended. Normal bowel sounds Back: No midline or flank tenderness Ext: No cyanosis, or edema Neur: Awake and alert Psych: Normal Mood and Affect Procedures/MDM Chest pain: Low suspicion for acute cardiac event, due to presentation, physical exam and EKG no ST elevation, no q waves or T waves,likely costochondritis. Treatment plan and follow-up discussed and understood by patient. If symptoms persist, worsen or new symptoms develop, then patient is instructed to follow-up with the primary care provider. If the patient is unable to see the primary care provider then return to the emergency department as needed Departure Diagnosis: Primary Impression: Chest pain, atypical Additional Impression: Costochondritis, acute Condition: Stable Patient Instructions: Chest Pain, Noncardiac Additional Instructions: Please take all the medications as directed. If symptoms persist, worsen or new symptoms develop, then patient is instructed to follow-up with the primary care provider. If the patient is unable to see the primary care provider then return to the emergency depratment as needed PAMELA LEMONS MD Mar 06, 2017 09:10
[2017-03-06] MEDS ORDERED: IBUP400T22 PO (09:13)
[2017-03-06] MEDS ORDERED: BACL10TA PO (09:13)
[2017-03-06 09:17] VITALS: BP 112/79; PULSE 66; RESP 18
== END 2017-03-06 09:18 | disposition home or self-care (01) ==
LOC: FTE 08:01
DX: M94.0 Chondrocostal junction syndrome [Tietze] (principal); E11.9 Type 2 diabetes mellitus without complications; I25.10 Atherosclerotic heart disease of native coronary artery without angina pectoris
CPT/HCPCS: 93005; 99283

== ENCOUNTER 2017-07-30 16:00 | Emergency (ER) | END 2017-07-30 19:20 | disposition home or self-care (01) ==

== ENCOUNTER 2018-03-05 08:47 | Emergency (ER) | END 2018-03-05 10:45 | disposition home or self-care (01) ==

== ENCOUNTER 2018-07-10 08:39 | Emergency (ER) | payer MEDICAID ==
[~2018-07-10] VITALS: Wt 71.0 kg
[~2018-07-10 08:39] MED LIST changes: +ACET325T33 PO; +BACL10TA PO; +CEPH-443 PO; +HYDR-3980 PO; -HYDR-902 PO; +IBUP-1561 PO; +NAPR-985 PO; +RANI150T35 PO
[2018-07-10 08:41] VITALS: BP 132/71; PULSE 99; RESP 18
[2018-07-10] MEDS ORDERED: D-ME473S2 PO (09:12)
[2018-07-10] MEDS ORDERED: IBUP-1542 PO (09:12)
--- NOTE | 2018-07-10 09:14 | ERD ---
ER Documentation Chief Complaint Chief Complaint BILATERAL EAR PAIN X 3 DAYS HPI 33-year-old female presents with bilateral ear pain for last 3 days patient has cough, congestion, bleeding or discharge. Denies any chest pain, abdominal pain, urinary complaints. ROS All systems reviewed and are negative except as per history of present illness. Medications Home Meds Active Scripts Dextromethorphan Hb-Promethazine Hcl* (Promethazine DM* Syrup) 473 Ml Syrup, 5 ML PO Q6 PRN for COUGH for 5 Days, ML Prov:DOMITILA BROWN MD 07/10/18 Ibuprofen* (Motrin*) 600 Mg Tab, 600 MG PO Q6, #20 TAB Prov:DOMITILA BROWN MD 07/10/18 Naproxen* (Naprosyn*) 500 Mg Tablet, 500 MG PO BID PRN for PAIN AND/OR INFLAMMATION, #30 TAB Prov:REBECCA PINK PA-C 03/05/18 Cephalexin* (Keflex*) 500 Mg Capsule, 500 MG PO BID for 7 Days, CAP Prov:REBECCA PINK PA-C 03/05/18 Acetaminophen* (Tylenol*) 325 Mg Tablet, 1 TAB PO Q6 PRN for PAIN AND OR ELEVAT ED TEMP, #20 TAB Prov:PAMELA LEMONS MD 07/30/17 Ranitidine Hcl* (Zantac*) 150 Mg Tablet, 150 MG PO BID PRN for EPIGASTRIC PAIN, #30 TAB Prov:PAMELA LEMONS MD 07/30/17 Baclofen* (Baclofen*) 10 Mg Tablet, 10 MG PO QHS for MUSCLE SPASMS for 7 Days, TAB Prov:PAMELA LEMONS MD 03/06/17 Ibuprofen* (Motrin*) 400 Mg Tab, 400 MG PO Q8 for 7 Days, #30 TAB Prov:PAMELA LEMONS MD 03/06/17 Ondansetron (Ondansetron Odt) 4 Mg Tab.rapdis, 4 MG PO Q6H PRN for NAUSEA AND/OR VOMITING, #10 TAB Prov:BREE CEDILLO MD 10/23/16 Hydrocodone/Acetaminophen ([place] 10-325 Tablet) 1 Each Tablet, 1 TAB PO Q6H PRN for PAIN, #7 TAB Prov:BREE CEDILLO MD 10/23/16 Reported Medications Garlic* (Garlic*) 100 Mg Tablet, 100 MG PO DAILY, TAB 10/23/16 [place]-3 Acid Ethyl Esters (Lovaza) 1 Gm Capsule, 2 GM PO BID, CAP 10/23/16 Folic Acid/Mv,Fe,Other Min (Centrum Complete Multivit Tab) 1 Each Tablet, 1 EACH PO, TAB 10/23/16 Acetaminophen* (Tylenol*) 500 Mg Tab, 500 MG PO Q4H PRN for MILD PAIN LEVEL 1-3, TAB 10/23/16 Allergies Allergies: Coded Allergies: No Known Allergy (Unverified , 03/06/17) PMhx/Soc History of Surgery: Yes (c/s x 3,breast implants) Anesthesia Reaction: No Hx Neurological Disorder: No Hx Respiratory Disorders: No Hx Cardiac Disorders: No Hx Psychiatric Problems: No Hx Miscellaneous Medical Probl: Yes (UTI) Hx Alcohol Use: No Hx Substance Use: No Hx Tobacco Use: No FmHx Family History: No diabetes, No coronary disease, No other Physical Exam Vitals Vital Signs Date Temp Pulse Resp B/P (MAP) Pulse Ox O2 O2 Flow FiO2 Time Delivery Rate 07/10/18 98.9 99 18 132/71 99 08:41 (91) Physical Exam Const: No acute distress Head: Atraumatic Eyes: Normal Conjunctiva ENT: Normal External Ears, Nose and Mouth. TMs grossly normal. Possibly clear and decreased light reflex. No mastoid tenderness. No pain with passive range of motion. No appreciable reproducible tenderness. Mild tenderness in the bitemporal area. Neck: Full range of motion. No meningismus. Resp: Clear to auscultation bilaterally Cardio: Regular rate and rhythm, no murmurs Abd: Soft, non tender, non distended. Normal bowel sounds Skin: No petechiae or rashes Back: No midline or flank tenderness Ext: No cyanosis, or edema Neur: Awake and alert Psych: Normal Mood and Affect Results 24 hrs Current Medications Medications Dose Sig/[place] Start Time Status Last (Trade) Ordered Route PRN Stop Time Admin Dose Reason Admin Ibuprofen 600 mg ONCE ONCE 07/10/18 (Motrin) PO 09:30 07/10/18 09:31 Procedures/MDM Patient presents with bilateral ear pain no signs of likely tension headache. She has no pulsatile masses, signs of perforation, mastoiditis, concerning signs or symptoms. We will treat empirically for unspecified ear pain or serous otitis with ibuprofen, promethazine, primary care follow-up and return precautions. The patient was stable with no new complaints during the ER course. Clinically, there is no current evidence to suggest meningitis, sepsis, acute abdomen, pneumonia, stroke, acute coronary syndrome, pulmonary embolism, aortic dissection or any other emergent condition appearing to require further evaluation or hospitalization. Patient counseled regarding my diagnostic impression and care plan. Prior to discharge all questions answered. Pt agrees with treatment plan and understands strict return precautions. Pt is instructed to follow up with primary care provider within 24-48 hours. Precautionary instructions provided including instructions to return to the ER if not improving or for any worsening or changing symptoms or concerns. Departure Diagnosis: Primary Impression: Ear problem Condition: Stable Patient Instructions: Earache W/O Infection (Adult) Additional Instructions: Cheque otro vez con kinney doctor primario en el proximo odom or regresa para mas o nueva simptomas. DOMITILA BROWN MD Jul 10, 2018 09:14
[2018-07-10] MEDS ORDERED: IBUPROFEN 600 MG TAB PO ONE (09:30)
== END 2018-07-10 09:45 | disposition home or self-care (01) ==
LOC: FTE 08:39
DX: H93.93 Unspecified disorder of ear, bilateral (principal)
CPT/HCPCS: Z7502; Z7610; 99283

== ENCOUNTER 2018-11-09 11:45 | Emergency (ER) | payer MEDICAID ==
[~2018-11-09] VITALS: Ht 160 cm; Wt 71.4 kg
[~2018-11-09 11:45] MED LIST changes: +D-ME473S2 PO; +IBUP-1542 PO
[2018-11-09 12:29] VITALS: BP 122/74; PULSE 77; RESP 18; Ht 160 cm; Wt 71.4 kg
[2018-11-09] MEDS ORDERED: LIDOCAINE 1% (MPF) 5 ML VIAL INJ ONE (13:30)
[2018-11-09] MEDS ORDERED: AZITHROMYCIN 500 MG TAB PO ONE (13:30)
[2018-11-09] MEDS ORDERED: CEFTRIAXONE 1 GM INJ IM ONE (13:30)
[2018-11-09] MEDS ORDERED: METR70GE15 VAG (14:42)
[2018-11-09] MEDS ORDERED: NAPR-985 PO (14:42)
--- NOTE | 2018-11-09 14:54 | ERD ---
ER Documentation Chief Complaint Chief Complaint pelvic pain x 2 months HPI 33-year-old female presenting with pelvic pain for the last 2 months. Patient states that she feels that it is inflamed and she has pain with intercourse. She denies any dysuria. She denies any vaginal discharge. She has no cyst history of no STD history. States the pain comes and goes and she does not know what elicits it. She denies any abdominal pain. Denies vomiting. Denies change in bowel movement. Denies medical problems. NKDA. Surgical history C- section. Social history denies ROS All systems reviewed and are negative except as per history of present illness. Medications Home Meds Active Scripts Metronidazole* (Metrogel* Vaginal) 0.75% -70 Gram Gel.w.appl, 1 APPFUL VAG HS, #7 TUB Prov:SHA MARTINS PA-C 11/09/18 Naproxen* (Naprosyn*) 500 Mg Tablet, 500 MG PO BID PRN for PAIN AND/OR INFLAMMATION, #30 TAB Prov:SHA MARTINS PA-C 11/09/18 Dextromethorphan Hb-Promethazine Hcl* (Promethazine DM* Syrup) 473 Ml Syrup, 5 ML PO Q6 PRN for COUGH for 5 Days, ML Prov:DOMITILA BROWN MD 07/10/18 Ibuprofen* (Motrin*) 600 Mg Tab, 600 MG PO Q6, #20 TAB Prov:DOMITILA BROWN MD 07/10/18 Naproxen* (Naprosyn*) 500 Mg Tablet, 500 MG PO BID PRN for PAIN AND/OR INFLAMMATION, #30 TAB Prov:REBECCA PINK PA-C 03/05/18 Cephalexin* (Keflex*) 500 Mg Capsule, 500 MG PO BID for 7 Days, CAP Prov:REBECCA PINK PA-C 03/05/18 Acetaminophen* (Tylenol*) 325 Mg Tablet, 1 TAB PO Q6 PRN for PAIN AND OR ELEVATED TEMP, #20 TAB Prov:PAMELA LEMONS MD 07/30/17 Ranitidine Hcl* (Zantac*) 150 Mg Tablet, 150 MG PO BID PRN for EPIGASTRIC PAIN, #30 TAB Prov:PAMELA LEMONS MD 07/30/17 Baclofen* (Baclofen*) 10 Mg Tablet, 10 MG PO QHS for MUSCLE SPASMS for 7 Days, TAB Prov:PAMELA LEMONS MD 03/06/17 Ibuprofen* (Motrin*) 400 Mg Tab, 400 MG PO Q8 for 7 Days, #30 TAB Prov:PAMELA LEMONS MD 03/06/17 Ondansetron (Ondansetron Odt) 4 Mg Tab.rapdis, 4 MG PO Q6H PRN for NAUSEA AND/OR VOMITING, #10 TAB Prov:BREE CEDILLO MD 10/23/16 Hydrocodone/Acetaminophen ([place] 10-325 Tablet) 1 Each Tablet, 1 TAB PO Q6H PRN for PAIN, #7 TAB Prov:BREE CEDILLO MD 10/23/16 Reported Medications Garlic* (Garlic*) 100 Mg Tablet, 100 MG PO DAILY, TAB 10/23/16 [place]-3 Acid Ethyl Esters (Lovaza) 1 Gm Capsule, 2 GM PO BID, CAP 10/23/16 Folic Acid/Mv,Fe,Other Min (Centrum Complete Multivit Tab) 1 Each Tablet, 1 EACH PO, TAB 10/23/16 Acetaminophen* (Tylenol*) 500 Mg Tab, 500 MG PO Q4H PRN for MILD PAIN LEVEL 1-3, TAB 10/23/16 Allergies Allergies: Coded Allergies: No Known Allergy (Unverified , 03/06/17) PMhx/Soc History of Surgery: Yes (c/s x 3,breast implants) Anesthesia Reaction: No Hx Neurological Disorder: No Hx Respiratory Disorders: No Hx Cardiac Disorders: No Hx Psychiatric Problems: No Hx Miscellaneous Medical Probl: Yes (UTI) Hx Alcohol Use: No Hx Substance Use: No Hx Tobacco Use: No FmHx Family History: No diabetes, No coronary disease, No other Physical Exam Vitals Vital Signs Date Temp Pulse Resp B/P (MAP) Pulse Ox O2 O2 Flow FiO2 Time Delivery Rate 11/09/18 98.2 77 18 122/74 99 12:29 (90) Physical Exam GENERAL: The patient is well-appearing, well-nourished, in no acute distress NECK: C-spine is soft and supple. There is no meningismus. There is no cervical lymphadenopathy. CHEST: Clear to auscultation bilaterally. There are no rales, wheezes or rhonchi. HEART: Regular rate and rhythm. No murmurs, clicks, rubs or gallops. ABDOMEN:Soft, nontender and nondistended. Good bowel sounds. No rebound or guarding. No gross peritonitis. No gross organomegaly or masses. Results 24 hrs Laboratory Tests Test 11/09/18 13:58 11/09/18 14:00 Bedside Urine pH (LAB) 7.0 Bedside Urine Protein (LAB) Negative Bedside Urine Glucose (UA) Negative Bedside Urine Ketones (LAB) Negative Bedside Urine Blood 1+ Bedside Urine Nitrite (LAB) Negative Bedside Urine Leukocyte Esterase (L Trace POC Beta HCG, Qualitative NEGATIVE Current Medications Medications Dose Sig/Lour[place] Start Time Status Last (Trade) Ordered Route PRN Stop Time Admin Dose Reason Admin Ceftriaxone 1 gm ONCE ONCE 11/09/18 DC 11/09/18 Sodium IM 13:30 14:09 (Rocephin) 11/09/18 13:31 Lidocaine 5 ml ONCE ONCE 11/09/18 DC 11/09/18 (Xylocaine INJ 13:30 14:08 1% (Mpf)) 11/09/18 13:31 1,000 mg ONCE ONCE 11/09/18 DC 11/09/18 Azithromycin PO 13:30 14:09 (Zithromax) 11/09/18 13:31 Procedures/MDM DIAGNOSTIC IMAGING REPORT Patient: SUHAIL CUNNINGHAM : 1985 Age: 33 Sex: F MR #: [id number] DOS: 11/09/18 1319 Ordering MD: MICAH MARTINS PA-C Location: [facility] Room/Bed: PROCEDURE: US Pelvis. CLINICAL INDICATION: Pelvic pain LAST MENSTRUAL PERIOD: TECHNIQUE: Multiple sonographic images of the pelvis were obtained utilizing a transabdominal and endovaginal technique. COMPARISON: None FINDINGS: The uterus is visualized and measures 7.6 x 3.8 x 4.7 cm. Intrauterine device in expected location. The endometrial echo complex is normal and measures 8.1 mm. There is no evidence for free fluid. The right ovary has a normal echotexture and measures 3.1 x 1.8 x 1.7 cm. The left ovary has a normal echotexture and measures 3.0 x 1.7 x 1.7 cm. No adnexal masses are noted. Normal bilateral ovarian blood flow. IMPRESSION: Normal pelvic ultrasound. MDM: 33-year-old female presenting with pelvic pain for 2 months. I have low suspicion for pelvic abnormality. I have low suspicion for urinary tract infection. I have low suspicion for other acute abdominal emergencies. His exam is non-concerning patient is nontoxic-appearing. She is told symptoms change or worsen to return immediately to the ER. All questions answered at discharge Departure Diagnosis: Primary Impression: Acute pain in female pelvis Condition: Stable Patient Instructions: Pelvic Pain, Unknown Cause Referrals: [employer] [place] [id number] [facility] [address] [place] [address] OFFICE FAX , [facility] [address] [place] [address] [address] [place] [address] [place] [address] [address] [address] [facility], [facility] [address] [address] [address] [place] [address] [facility] [address] [place] [address] [facility] [address] - [address] [facility] [address] [address] [place], [place] [address] [facility]. [address], [facility] [address] [address] [address] [place] [address] Additional Instructions: FOLLOW UP WITH YOUR PRIMARY CARE PHYSICIAN TOMORROW.Return to this facility if you are not improving as expected. SHA MARTINS PA-C Nov 09, 2018 14:54
== END 2018-11-09 14:55 | disposition hospice, home (50) ==
LOC: FTE 11:45
DX: R10.2 Pelvic and perineal pain (principal)
CPT/HCPCS: 76830; 76856; 81003; 81025; 87591; J0696; Z7610; 96372